=== PATIENT | female | born 1995 | race Caucasian/White ===

== ENCOUNTER 2016-12-17 15:07 | Emergency (ER) | payer OTHER ==
--- NOTE | 2016-12-17 16:11 | ER Document Report ---
ED General - General Chief Complaint: Insect Bite Stated Complaint: SPIDER BITE Time Seen by Provider: 12/17/16 16:08 Mode of Arrival: Ambulatory Information source: Patient Notes: Patient's a 21-year-old female who presents with red bumps to her right forearm just distal to her elbow. She states she noticed them earlier today around mid- afternoon. She had been wearing a sweatshirt while working outside and when she came inside and reviewed the sweatshirt to take a shower, she noticed the bump. She said at that time they were much larger than they are now and had a greenish yellowish appearance to the top of them. She states while in the shower she expressed a good amount of greenish/yellowish pus from the bumps. After getting out of the shower she felt faint and lightheaded and states "half of my body went numb" but she did not actually lose consciousness. Those symptoms have since resolved and she believes it could be from a panic attack as she was concerned about her arm. She never saw a spider or felt an actual insect bite to her forearm. Denies any fever, chills, vomiting, headache, blurred vision. She states the bites on her forearm are looking much better than they did before. TRAVEL OUTSIDE OF THE [place] IN LAST 30 DAYS: No - Related Data Allergies/Adverse Reactions: No Known Allergies Allergy (Verified 12/17/16 15:12) Past Medical History - General Information source: Patient - Social History Smoking Status: Unknown if Ever Smoked Family History: Reviewed & Not Pertinent Patient has suicidal ideation: No Patient has homicidal ideation: No Renal/ Medical History: Denies: Hx Peritoneal Dialysis Review of Systems - Review of Systems Constitutional: See HPI EENT: No symptoms reported Cardiovascular: No symptoms reported Respiratory: No symptoms reported Gastrointestinal: No symptoms reported Genitourinary: No symptoms reported Female Genitourinary: No symptoms reported Musculoskeletal: See HPI Skin: See HPI Hematologic/Lymphatic: No symptoms reported Neurological/Psychological: No symptoms reported Physical Exam - Vital signs Vitals: Temp Pulse Resp BP Pulse Ox 98.4 F 75 14 125/80 99 12/17/16 15:13 12/17/16 15:13 12/17/16 15:13 12/17/16 15:13 12/17/16 15:13 - Notes Notes: PHYSICAL EXAM: CONSTITUTIONAL: Alert and oriented, well-appearing and in no acute distress. HENT: Normocephalic, atraumatic. Trachea midline. Uvula midline. Moist mucous membranes. EYES: Pupils equal round and reactive to light, EOM intact. Sclera anicteric, conjunctiva are normal. No entrapment. NECK: supple without lymphadenopathy. No midline tenderness or paraspinous muscle spasms. No step-offs or deformities. ROM intact. HEART: Regular rate and rhythm without murmurs. LUNGS: CTAB and equal. No wheezes, rales or rhonchi. BACK: nontender, no paraspinous spasm, 5+/5 strengths, DTRs 2+, SLR -. EXTREMITIES: Normal range of motion, no pitting edema. No cyanosis. Cap Refill < 3 seconds. NEURO: Cranial nerves grossly intact. Normal sensory/motor exams. PSYCH: Normal mood, normal affect. SKIN: Warm and dry. Normal turgor. No rashes noted. 4 linear pustules with surrounding erythema in total length measuring 1 inch. No tenderness, drainage or bleeding noted. No warmth or edema. No streaking or palpable cords to arm. No eschar noted. Course - Re-evaluation Re-evalutation: 12/17/16 16:24 Patient seen and examined. 4 linear pustules with surrounding erythema in total length measuring 1 inch. No drainage or bleeding noted. No warmth or edema. No streaking or palpable cords to arm. No eschar noted. Reassured patient that while this may have been an insect bite I do not feel based on the appearance that it is a spider bite. It is reassuring that the lesions have improved and are nontender at this point. Will give prescription for antibiotics to cover empirically and provided return precautions if wound worsens. At this time, will discharge with return precautions and follow-up recommendations. Verbal discharge instructions given at the bedside and opportunity for questions given. Medication warnings reviewed. Patient is in agreement with this plan and has verbalized understanding of return precautions and the need for primary care follow-up in the next 24-72 hours. - Vital Signs Vital signs: Temp Pulse Resp BP Pulse Ox 98.4 F 75 14 125/80 99 12/17/16 15:13 12/17/16 15:13 12/17/16 15:13 12/17/16 15:13 12/17/16 15:13 Discharge - Discharge Clinical Impression: Insect bite of forearm, right Qualifiers: Encounter type: initial encounter Qualified Code(s): S50.861A - Insect bite ( nonvenomous) of right forearm, initial encounter; W57.XXXA - Bitten or stung by nonvenomous insect and other nonvenomous arthropods, initial encounter Condition: Stable Disposition: HOME, SELF-CARE Additional Instructions: Return if you notice worsening of the redness or swelling, fever, chills, vomiting, body aches. He can take ibuprofen or Advil as needed for pain. Insect Bites You have been bitten by an insect. These bites can cause two types of swelling: an initial swelling due to insect saliva or injected poison, and a late reaction due to your body's allergic reaction. This initial local reaction may be uncomfortable but is not dangerous. Often there's an itchy "hive" at the bite location. This is treated with antihistamines, cold compresses, and resting the affected body part. The later reaction often develops about the second day. The entire area becomes very swollen, red, itchy, and tender. This is an allergic reaction. Your body is attacking the leftover insect saliva or venom. This type of allergy is unpleasant, but not dangerous. We treat this swelling with cortisone -type medicine. Sometimes we use antibiotics if we're worried about infection. Antihistamines help with the itch. If you develop a fever, chills, a red streak, or swollen glands in the area of the bite, infection may be starting. Return at once. Antibiotic Therapy You have been given an antibiotic prescription. It's important that you take all the medication, unless instructed otherwise by your physician. Failure to complete the entire course can result in relapse of your condition. Common side effects of antibiotics include nausea, intestinal cramping, or diarrhea. Women may develop vaginal yeast infections, and babies can get yeast (thrush) in the mouth following the use of antibiotics. Contact your physician if you develop significant side effects from this medication. Allergy to this antibiotic can result in hives, wheezing, faintness, or itching. If symptoms of allergy occur, stop the medication and call the doctor. FOLLOW-UP CARE: If you have been referred to a physician for follow-up care, call the physician s office for an appointment as you were instructed or within the next two days. If you experience worsening or a significant change in your symptoms, notify the physician immediately or return to the Emergency Department at any time for re-evaluation. Prescriptions: Cephalexin Monohydrate [Keflex 500 mg Capsule] 500 mg PO Q6H 5 Days
[2016-12-17 17:40] VITALS: BP 120/82
== END 2016-12-17 17:30 | disposition home or self-care (01) ==
LOC: ER 15:07
DX: S50.861A Insect bite (nonvenomous) of right forearm, initial encounter (principal); W57.XXXA Bitten or stung by nonvenomous insect and other nonvenomous arthropods, initial encounter
CPT/HCPCS: 99281

== ENCOUNTER → 2016-12-28 | Outpatient (CLI) | payer OTHER ==
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
== END ==
LOC: RAD 18:35
PROVIDERS: ATTEND Physician Assistant
DX: M25.562 Pain in left knee (principal)